=== PATIENT | female | born 1995 | race Caucasian/White ===

== ENCOUNTER 2021-05-24 19:00 | Inpatient (IN) | payer OTHER ==
[~2021-05-24 19:00] MED LIST: Acetaminophen 500 MG TAB PO PRN; Bupivacaine 0.25% HCL 30 ML VIAL ONE; Bupivacaine PF 0.5% 30 ML VIAL ONE; Lidocaine 1% (PF) 30 ML VIAL SC PRN; Misoprostol 100 MCG TAB PO SCH; NS w/ Oxytocin 30 units 500 ML IV SCH; Ondansetron PF 4 MG/2 ML Vial IVP PRN; Promethazine HCl 25 MG/ML VIAL IM PRN; hydrALAZINE 20 MG/ML VIAL SLOW IVP PRN
[2021-05-24] MEDS ORDERED: Penicillin G Potassium 5 MILL.UNITS in Sodium Chloride 0.9% 100 ML IVPB SCH (20:00)
[2021-05-24 22:34] VITALS: BMI 50.8
[2021-05-24 22:44] LABS: Hemoglobin 12.4 g/dL (12.0-15.5); Mean Corpuscular HGB CONC 34.6 g/dL (32.0-36.0); Mean Corpuscular Hemoglobin 32.6 pg (27.0-33.0); Mean Corpuscular Volume 94.2 fl (81.6-98.3); Mean Platelet Volume 10.4 fl (7.4-10.4); Platelet Count 314 10x3/uL (150-450); RBC Distribution Width 13.2 % (11.5-14.5); White Blood Cell (WBC) Count 13.2 10x3/uL (3.5-10.5)
[2021-05-24 23:06] LABS: Creatinine, Urine 195.12 mg/dL (47-110)
[2021-05-24 23:08] LABS: ALT (SGPT) 11 U/L (8-55); AST (SGOT) 11 U/L (5-34); Albumin 3.3 g/dL (3.5-5.0); Alkaline Phosphatase 333 U/L (40-110); Anion Gap 15 mmol/L (10-20); BUN (Urea Nitrogen) 10 mg/dL (7.0-18.7); Bilirubin, Total 0.2 mg/dL (0.2-1.2); Calc. Creatinine Clearance 289 mL/min (70-130); Calcium 8.7 mg/dL (7.8-10.44); Carbon Dioxide 20 mmol/L (22-29); Chloride 108 mmol/L (98-107); Globulin 2.6 g/dL (2.4-3.5); Glucose 94 mg/dL (70-105); Potassium 4.3 mmol/L (3.5-5.1); Protein, Total 5.9 g/dL (6.0-8.3); Sodium 139 mmol/L (136-145)
[2021-05-24 23:25] LABS: Hep B Surf Ag Non-Reactive S/CO (NonReactive); Syphilis Antibody Nonreactive (Nonreactive); Syphilis Antibody Index 0.03 S/CO (<1.00 Non-Reactive)
[2021-05-25 00:01] LABS: HBSAg Index 0.18 S/CO (0-0.99)
[2021-05-25 00:44] LABS: SARS-CoV-2 NAA Rapid Test Not Detected (NotDetected)
[2021-05-25] MEDS ORDERED: Misoprostol 100 MCG TAB PO SCH (02:45)
[2021-05-25] MEDS ORDERED: Penicillin G Potassium 5 MILL.UNITS VIAL ONE (05:44)
[2021-05-25] MEDS ORDERED: Fentanyl 2 mcg/Bup 0.1% Cadd 100 ML ONE ×2 (10:12→16:57)
[2021-05-25] MEDS: Penicillin G 2.5 MILL.units 2.5 MILL.UNITS in Premix Bag 1 BAG IVPB SCH ×3 (11:01→18:52)
[2021-05-25] MEDS ORDERED: Naloxone HCl 0.4 mg/ml Vial IVP PRN ×4 (11:23→22:11)
[2021-05-25] MEDS ORDERED: diphenhydrAMINE 50 MG/ML VIAL IVP PRN ×3 (11:23→23:11)
[2021-05-25] MEDS ORDERED: Promethazine HCl 25 MG/ML VIAL IM PRN ×3 (11:23→23:11)
[2021-05-25] MEDS ORDERED: ePHEDrine Sulfate 50 MG/10 ML VIAL SLOW IVP PRN (11:23)
[2021-05-25] MEDS ORDERED: Acetaminophen 325 MG TAB PO PRN (11:23)
[2021-05-25] MEDS ORDERED: Lactated Ringer's 500 ML IV PRN (11:23)
[2021-05-25] MEDS ORDERED: Hydrocerin (Eucerin) Cream 120 gm Jar TOP PRN ×2 (11:23→22:11)
[2021-05-25] MEDS ORDERED: Ondansetron PF 4 MG/2 ML Vial IVP PRN ×3 (11:23→23:11)
[2021-05-25] MEDS ORDERED: Communication Order-Pharmacy FS PRN (11:30)
[2021-05-25] MEDS ORDERED: Fentanyl 2 mcg/Bupivacaine 0.1% Cassette 100 ML EPIDURAL SCH (11:30)
[2021-05-25] MEDS ORDERED: Azithromycin 500 MG VIAL ONE (20:57)
[2021-05-25] MEDS ORDERED: Bicitra 30 ML UDCUP PO PRN (21:00)
[2021-05-25] MEDS ORDERED: CEFAZOLIN 2 GM in Premix Bag 1 BAG IVPB SCH (21:00)
[2021-05-25] MEDS ORDERED: Famotidine/PF 20 mg/2ml Vial SLOW IVP PRN (21:00)
[2021-05-25] MEDS ORDERED: Azithromycin 500 MG in Sodium Chloride 0.9% 250 ML 250 ML IVPB SCH (21:00)
[2021-05-25] MEDS ORDERED: Morphine PF 10 MG/10 ML VIAL ONE (21:30)
[2021-05-25] MEDS ORDERED: Oxytocin 10 UNITS/ML VIAL ONE (21:31)
[2021-05-25] MEDS ORDERED: Dexamethasone 4 mg/ml Vial ONE (21:31)
[2021-05-25] MEDS ORDERED: Ketorolac Tromethamine 30 MG/ML VIAL ONE (21:31)
[2021-05-25] MEDS ORDERED: Ondansetron PF 4 MG/2 ML Vial ONE (21:31)
[2021-05-25] MEDS ORDERED: PROPOFOL 20 ML ONE (21:43)
[2021-05-25] MEDS ORDERED: Succinylcholine 200 MG/10 ml SYRINGE FS ONE (21:46)
[2021-05-25] MEDS ORDERED: Carboprost 250 MCG/ML AMP ONE ×3 (22:00→22:01)
[2021-05-25] MEDS ORDERED: Fentanyl 100 MCG/2 ML VIAL SLOW IVP PRN (22:11)
[2021-05-25] MEDS ORDERED: Ketorolac Tromethamine 30 MG/ML VIAL IVP PRN (22:11)
[2021-05-25] MEDS ORDERED: Meperidine HCl/PF 25 MG/ML VIAL SLOW IVP PRN (22:11)
[2021-05-25] MEDS ORDERED: Naloxone HCl 0.4 mg/ml Vial IV PRN ×2 (22:11→23:11)
[2021-05-25] MEDS ORDERED: Ondansetron HCl/PF 4 MG/2 ML Vial IVP PRN (22:11)
[2021-05-25] MEDS ORDERED: Promethazine HCl 25 MG SUPP PR PRN (22:11)
[2021-05-25] MEDS ORDERED: HYDROmorphone 2 MG/ML VIAL SLOW IVP PRN (22:11)
[2021-05-25] MEDS ORDERED: Ketorolac Tromethamine 30 MG/ML VIAL IVP SCH (22:15)
[2021-05-25] MEDS ORDERED: Communication Order-Pharmacy FS SCH ×2 (22:15→23:15)
[2021-05-25 22:19] LABS: Critical Notified Whom: NNP
[2021-05-25 22:22] LABS: Critical Notified Whom: NNP; pH (Cord, venous) 7.213 (7.250-7.350)
[2021-05-25] MEDS: Misoprostol 200 MCG TAB ONE (23:02)
[2021-05-25] MEDS ORDERED: diphenhydrAMINE 25 MG CAP PO PRN (23:11)
[2021-05-25] MEDS ORDERED: Zolpidem Tartrate 5 MG TAB PO PRN (23:11)
[2021-05-25] MEDS ORDERED: diphenhydrAMINE 50 MG/ML VIAL IM PRN (23:11)
[2021-05-25] MEDS ORDERED: fentaNYL Citrate/PF PCA SYRING 50 ML IV PRN (23:11)
[2021-05-26] MEDS ORDERED: Diphenoxylate HCl/Atropine Tablet PO PRN (00:34)
[2021-05-26] MEDS ORDERED: Acetaminophen 325 MG TAB PO PRN (00:41)
[2021-05-26] MEDS ORDERED: Boostrix 0.5 ML (Tdap) VIAL IM ONE (00:41)
[2021-05-26] MEDS ORDERED: Simethicone Chewable 80 MG TAB PO PRN (00:41)
[2021-05-26] MEDS ORDERED: Ondansetron PF 4 MG/2 ML Vial IVP PRN (00:41)
[2021-05-26] MEDS ORDERED: Lanolin Ointment 7 GM TUBE TOP PRN (00:41)
[2021-05-26] MEDS ORDERED: Bisacodyl 10 MG SUPP PR PRN (00:41)
[2021-05-26] MEDS ORDERED: NS w/ Oxytocin 30 units 500 ML IV SCH (00:41)
[2021-05-26] MEDS ORDERED: hydrALAZINE 20 MG/ML VIAL SLOW IVP PRN (00:41)
[2021-05-26] MEDS: CEFAZOLIN 2 GM in Premix Bag 1 BAG IVPB SCH ×3 (05:35→22:25)
[2021-05-26] MEDS: Misoprostol 200 MCG TAB PO SCH ×4 (05:35→23:57)
[2021-05-26 07:40] LABS: Hemoglobin 11.3 g/dL (12.0-15.5); Mean Corpuscular HGB CONC 33.9 g/dL (32.0-36.0); Mean Corpuscular Hemoglobin 32.4 pg (27.0-33.0); Mean Corpuscular Volume 95.4 fl (81.6-98.3); Mean Platelet Volume 9.9 fl (7.4-10.4); Platelet Count 275 10x3/uL (150-450); RBC Distribution Width 13.6 % (11.5-14.5); Red Blood Cell (RBC) Count 3.49 10x6/uL (3.90-5.03); White Blood Cell (WBC) Count 19.5 10x3/uL (3.5-10.5)
[2021-05-26] MEDS: Prenatal Vitamin 1 TAB PO SCH (08:56)
[2021-05-26] MEDS: HYDROcodone/Acetaminophen 5/325 mg Tablet PO PRN ×3 (13:46→22:26)
[2021-05-26] MEDS: Penicillin G 2.5 MILL.units 2.5 MILL.UNITS in Premix Bag 1 BAG IVPB SCH ×3 (19:50→19:52)
[2021-05-26] MEDS: Ibuprofen 800 MG TAB PO PRN (22:26)
[2021-05-26] MEDS: Docusate Calcium (SURFAK) 240 MG CAP PO PRN (22:31)
[2021-05-27] MEDS: HYDROcodone/Acetaminophen 5/325 mg Tablet PO PRN ×4 (04:25→19:23)
[2021-05-27] MEDS: Prenatal Vitamin 1 TAB PO SCH (09:48)
[2021-05-27] MEDS: Ibuprofen 800 MG TAB PO PRN (19:23)
[2021-05-27] MEDS: Docusate Calcium (SURFAK) 240 MG CAP PO PRN (21:52)
[2021-05-28] MEDS: Ibuprofen 800 MG TAB PO PRN (03:58)
[2021-05-28] MEDS: HYDROcodone/Acetaminophen 5/325 mg Tablet PO PRN ×2 (03:59→08:32)
[2021-05-28 07:49] VITALS: BP 127/68; TEMP 97.9
[2021-05-28] MEDS: Docusate Calcium (SURFAK) 240 MG CAP PO PRN (08:29)
[2021-05-28] MEDS: Prenatal Vitamin 1 TAB PO SCH (08:29)
== END 2021-05-28 11:20 | disposition home or self-care (01) | DRG 787 ==
LOC: CSHLD 19:55 → CSHPP 05-26 02:15
PROVIDERS: ADMIT Obstetrics & Gynecology; ATTEND Obstetrics & Gynecology
PROC: 10907ZC Drainage of Amniotic Fluid, Therapeutic from Products of Conception, Via Natural or Artificial Opening (ICD-10-PCS; principal; 2021-05-25)
PROC: 10D00Z1 Extraction of Products of Conception, Low, Open Approach (ICD-10-PCS; 2021-05-25)
PROC: 3E033VJ Introduction of Other Hormone into Peripheral Vein, Percutaneous Approach (ICD-10-PCS; 2021-05-25)
DX: O62.1 Secondary uterine inertia (principal); O98.82 Other maternal infectious and parasitic diseases complicating childbirth; O99.214 Obesity complicating childbirth; E66.9 Obesity, unspecified; B95.1 Streptococcus, group B, as the cause of diseases classified elsewhere; Z3A.39 39 weeks gestation of pregnancy; Z37.0 Single live birth
CPT/HCPCS: 36415; 51702; 80053; 82570; 82805; 84156; 85027; 86780; 86850; 86900; 86901; 87340; 88307; J0690; J1100; J1885; J2274; J2405; J2540; J2590; J2704; J3010; J3490; U0002